=== PATIENT | male | born 1970 | race Caucasian/White ===

== ENCOUNTER 2016-09-28 22:14 | Emergency (ER) | payer OTHER ==
[2016-09-28 22:25] VITALS: RESP 20
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
[2016-09-28] MEDS ORDERED: fentaNYL 100 MCG/2 ML INJ ONE (22:45)
[2016-09-28] MEDS ORDERED: fentaNYL 100 MCG/2 ML INJ IVP ONE (22:45)
[2016-09-28] MEDS ORDERED: HYDROmorphONE/DILAUDID 1 MG/ML SYR IVP ONE (23:13)
[2016-09-29] MEDS ORDERED: OXYCODONE/APAP 5/325MG PREPACK#4 BTL TAKEHOME ONE (00:18)
[2016-09-29 00:30] VITALS: BP 113/77; PULSE 87; TEMP 98.6; O2SAT 93
== END 2016-09-29 00:29 | disposition home or self-care (01) ==
DX: S22.31XA Fracture of one rib, right side, initial encounter for closed fracture (principal); J45.909 Unspecified asthma, uncomplicated; V89.2XXA Person injured in unspecified motor-vehicle accident, traffic, initial encounter
CPT/HCPCS: 96374; J1170; J3010